=== PATIENT | female | born 1990 | race Caucasian/White ===

== ENCOUNTER 2016-08-05 12:27 | Inpatient (IN) | payer OTHER, MEDICAID ==
[~2016-08-05] VITALS: Ht 157.5 cm; Wt 51.2 kg
[2016-08-05] MEDS ORDERED: PREN1TAB11 PO (12:39)
[2016-08-05] MEDS ORDERED: MULTIVITAMIN -ADULT INJECTION 10 ML, THIAMINE INJection 100 MG, FOLIC ACID 1 MG in NS 1... IV ONE (12:45)
[2016-08-05 13:04] LABS: BASO % 0.3 % (0.0-1.0); EOS % 0.1 % (0.0-3.0); LARGE UNSTAINED CELL # 0.3 K/mm3 (0.0-0.4); LARGE UNSTAINED CELL % 2.3 % (0.0-4.0); LYMPH # 1.8 K/mm3 (1.5-6.5); LYMPH % 12.6 % (24.0-44.0); MEAN CORPUSCULAR HEMOGLOBIN 26.1 pg (27.0-33.0); MEAN CORPUSCULAR HGB CONC 33.9 g/dl (32.0-36.5); MEAN CORPUSCULAR VOLUME 77.1 fl (80.0-96.0); MONO # 0.6 K/mm3 (0.0-0.8); MONO % 5.2 % (0.0-5.0); NEUTROPHILS # 9.4 K/mm3 (1.8-7.7); NEUTROPHILS % 79.5 % (36.0-66.0); PLATELET COUNT, AUTOMATED 318 k/mm3 (150-450); RED CELL DISTRIBUTION WIDTH 13.9 % (11.5-14.5); WHITE BLOOD COUNT 11.8 K/mm3 (4.0-10.0)
[2016-08-05 13:15] LABS: METHADONE URINE NEGATIVE (NEGATIVE)
[2016-08-05 13:17] LABS: ALBUMIN/GLOBULIN RATIO 0.77 (1.00-1.93); ALKALINE PHOSPHATASE 70 U/L (45-117); ALT/SGPT 16 U/L (12-78); ANION GAP 12 MEQ/L (8-16); AST/SGOT 24 U/L (15-37); BILIRUBIN,TOTAL 0.9 MG/DL (0.2-1.0); BLOOD UREA NITROGEN 6 MG/DL (7-18); CALCIUM LEVEL 8.4 MG/DL (8.5-10.1); CARBON DIOXIDE LEVEL 36 MEQ/L (21-32); CHLORIDE LEVEL 84 MEQ/L (98-107); CREATININE FOR GFR 0.51 MG/DL (0.55-1.02); GLOMERULAR FILTRATION RATE > 60.0 (>60); GLUCOSE, FASTING 115 MG/DL (70-105); SODIUM LEVEL 132 MEQ/L (136-145); TOTAL PROTEIN 6.9 GM/DL (6.4-8.2)
[2016-08-05] MEDS ORDERED: POTASSIUM CHLORIDE 10% LIQ 20 MEQ/15 ML UDC PO ONE ×2 (13:45→18:00)
[2016-08-05] MEDS ORDERED: KCL 10MEQ IN 100ML SWI (KRUN) 10 MEQ in APPROPRIATE DILUENT 1 EA IV ONE ×2 (13:45)
[2016-08-05 15:46] LABS: BASO % 0.3 % (0.0-1.0); EOS % 0.3 % (0.0-3.0); LARGE UNSTAINED CELL # 0.2 K/mm3 (0.0-0.4); LARGE UNSTAINED CELL % 1.7 % (0.0-4.0); LYMPH # 1.6 K/mm3 (1.5-6.5); LYMPH % 16.4 % (24.0-44.0); MEAN CORPUSCULAR HEMOGLOBIN 25.7 pg (27.0-33.0); MEAN CORPUSCULAR HGB CONC 33.1 g/dl (32.0-36.5); MEAN CORPUSCULAR VOLUME 77.6 fl (80.0-96.0); MONO # 0.4 K/mm3 (0.0-0.8); MONO % 4.5 % (0.0-5.0); NEUTROPHILS # 6.8 K/mm3 (1.8-7.7); NEUTROPHILS % 76.8 % (36.0-66.0); PLATELET COUNT, AUTOMATED 272 k/mm3 (150-450); RED CELL DISTRIBUTION WIDTH 13.9 % (11.5-14.5); WHITE BLOOD COUNT 8.8 K/mm3 (4.0-10.0)
[2016-08-05 17:36] LABS: POTASSIUM SERUM 2.3 MEQ/L (3.5-5.1)
[2016-08-05 17:57] LABS: BILIRUBIN,DIRECT 0.2 MG/DL (0.0-0.2); FERRITIN 4 NG/ML (8-252); MAGNESIUM LEVEL 1.9 MG/DL (1.8-2.4)
[2016-08-05] MEDS ORDERED: TYLE1TAB5 PO (17:58)
[2016-08-05] MEDS ORDERED: RANITAB PO (17:58)
[2016-08-05] MEDS ORDERED: TUMS500C PO (17:58)
[2016-08-05] MEDS ORDERED: POTASSIUM CHLORIDE INJ 20 MEQ in D5W/LR 1,000 ML IV SCH (18:00)
[2016-08-05 18:04] LABS: RETIC HEMOGLOBIN CONTENT CHr 28.5 PG (24-36); RETICULOCYTE ABSOLUTE ADVIA212 137 x10(9)/L (17-77)
--- NOTE | 2016-08-05 18:07 | REP ---
OB ULTRASOUND: REASON: Anemia. COMPARISON: None. Multiple ultrasonographic images of the gravid uterus show a single living intrauterine gestation in the tc breech presentation. Doppler interrogation of the heart shows a heart rate of 123 beats per minute. The placenta is anterior and not low lying. The subjective aminotic fluid volume is within normal limits. The cervix measures 2.8 cm in length and it is closed. Evaluation of the maternal adnexal spaces showed no abnormalities. Structures visualized as unremarkable are as follows: Thalami, cavum septum pellucidum, cerebellum, cisterna magna, cerebral ventricles, urinary bladder, cord insertion, three vessel umbilical cord, stomach, four chamber heart, right and left ventricular outflow tracts, upper and lower extremities, upper lip. BPD 5.8 cm = 23 weeks 6 days HC 22.9 cm = 24 weeks 6 days AC 22.0 cm = 26 weeks 3 days FL 4.5 cm = 24 weeks 6 days Estimated weight is 825 grams which is at the 48th percentile for a 25 week 3 day gestational age. IMPRESSION: Single living intrauterine gestation as described above with an estimated gestational age of 24 weeks 6 days via composite criteria and an estimated date of delivery of 11/19/2016 by today's exam. No anomalies were detected, however I recommend a followup exam to better image the spine and kidneys. Signed by David Smith DO 08/07/2016 03:43 P
[2016-08-05 18:09] LABS: INR 0.97
[2016-08-05 19:12] LABS: ANION GAP 9 MEQ/L (8-16); BLOOD UREA NITROGEN 4 MG/DL (7-18); CALCIUM LEVEL 7.7 MG/DL (8.5-10.1); CARBON DIOXIDE LEVEL 35 MEQ/L (21-32); CHLORIDE LEVEL 93 MEQ/L (98-107); CREATININE FOR GFR 0.44 MG/DL (0.55-1.02); GLOMERULAR FILTRATION RATE > 60.0 (>60); GLUCOSE, FASTING 84 MG/DL (70-105); SODIUM LEVEL 137 MEQ/L (136-145)
[2016-08-05] MEDS ORDERED: POTASSIUM CHLORIDE 10 MEQ SR TABLET PO ONE (19:15)
[2016-08-05] MEDS ORDERED: OXAZEPAM 10 MG CAP PO PRN (19:15)
[2016-08-05 20:00] VITALS: BP 118/70
--- NOTE | 2016-08-05 20:01 | ECGEPIP ---
Stationary ECG Study [facility] Test Date: 2016-08-05 Pat Name: LUANN MCKEE Department: Room: - Gender: F Manager Of Broadcast Content: latoya : 1990 Requested By: MILENA LEAL Order Number: [id number] Reading MD: James Dominique Measurements Intervals [place] Rate: 97 P: 4 CO: 139 QRS: 39 QRSD: 101 T: -2 QT: 385 QTc: 490 Interpretive Statements SINUS RHYTHM QTc prolonged NONSPECIFIC ST & T-WAVE ABNORMALITY Comparison tracing not on file Electronically Signed On 08-05-2016 20:00:51 EDT by James Dominique
[2016-08-05] MEDS: KCL 40MEQ in NS 1000ML 1,000 ML IV SCH (20:15)
--- NOTE | 2016-08-05 21:59 | HPE ---
DATE OF ADMISSION: 08/05/2016 PRIMARY CARE PROVIDER: Dr. Cano OBSTETRICS/GYNECOLOGY: Dr. Patino CHIEF COMPLAINT: Intoxication. HISTORY OF PRESENT ILLNESS: Ms. Courtney is a 25-year-old female with past medical history of alcohol abuse who presented to the emergency department (ED) today for alcohol intoxication. Patient reportedly was at her rehabilitation facility and was sent over. Admits to drinking two 12-ounces of [place]. She has a history of alcohol use, but states her last drink was 12/2015. However, recently, states that she has a lot of stress in her life, including wanted to be from her boyfriend and subsequently drank heavily earlier today. Denies any chest pain, palpitations, fevers, chills. Reports shortness of breath since her . Also reports nausea, vomiting because of her . No hematuria, hemoptysis, hematemesis, melena, or abnormal bloody vaginal discharge. PAST MEDICAL HISTORY: Gastroesophageal reflux disease (GERD). Alcohol abuse. OBSTETRICAL HISTORY: She is G5, P3. PAST SURGICAL HISTORY: Tonsillectomy. ALLERGIES: No known drug allergies. HOME MEDICATIONS: - calcium 500 mg by mouth three times a day as needed - one tablet by mouth daily - ranitidine 75 mg by mouth before food - Tylenol FAMILY HISTORY: Unknown. She does have a sibling who is reportedly healthy. SOCIAL HISTORY: She used to smoke but unwilling to state how long, but quit since her . Used to drink heavily and last drink was today. No drug use. No recent travel. Patient is a [place]. Does not work outside of the home. No travel outside the state. Admits that she wanted to go [facility] and has plans on breaking up with boyfriend. Currently lives at home with boyfriend and one dog. REVIEW OF SYSTEMS: CONSTITUTIONAL: Denies fevers, chills, rigors, weight changes. HEENT: Denies headaches, lightheadedness, dizziness, blurry vision, difficulty with speech and swallow. CARDIOVASCULAR: Positive for shortness of breath, as mentioned above. Denies chest pain, paroxysmal nocturnal dyspnea, pillow orthopnea, lower extremity edema. PULMONARY: Denies productive cough, hemoptysis. GASTROINTESTINAL: Denies hematochezia, melena, or hematemesis. Positive for nausea, vomiting due to . Denies diarrhea, constipation. GENITOURINARY: No dysuria, frequency or hematuria. MUSCULOSKELETAL: No bone, muscle, joint pain. NEUROLOGICAL: No paralysis, paresthesia, headaches. ENDOCRINE: Negative for diabetes, or thyroid disease. LYMPHATICS: No lumps, bumps, or swelling anywhere in neck, axilla, or groin. HEMATOLOGY: No abnormal bleeding or bruising. PHYSICAL EXAMINATION: VITAL SIGNS: Blood pressure 125/72, heart rate 98, temperature 97.6, pulse oximetry 99% on room air, respiration rate 18. GENERAL: Patient is sitting in bed, comfortable, no acute distress. Thin-appearing. Boyfriend at bedside. Cooperative. HEENT: Normocephalic, atraumatic. Moist oral mucosa. Poor dentition considering age. Nasal septum midline. EYES: Extraocular movements intact. Pupils are equal and reactive to light. NECK: Supple. Trachea midline. No jugular venous distention (JVD). CHEST: Symmetric chest rise. No accessory muscle use. Breath sounds clear to auscultation bilaterally. HEART: Regular rate and rhythm. Normal S1, S2. ABDOMEN: Gravid. Bowel sounds present. EXTREMITIES: No pedal edema. Pedal pulses present bilaterally. NEUROLOGIC: No focal deficits appreciated. Cranial nerves II-XII grossly intact. PSYCHIATRIC: She was initially hesitant in answering questions when her boyfriend was in the room, but was able to share more details after he left. LABORATORY DATA: WBC 8.8, hemoglobin 8, hematocrit 24.1, platelets 272. Sodium 137, potassium initially was 2; after multiple doses of potassium given in the emergency department (ED), increased to 2.3; chloride 93, carbon dioxide 35, BUN 4, creatinine 0.44, glucose 85, calcium 7.7. Toxicology screen negative except for level at 0.27. Coag studies negative. EKG shows sinus rhythm with ventricular rate of [address]-T wave abnormalities. Obstetrical ultrasound showed single living intrauterine gestation. Gestation age is estimated to be 24 weeks 6 days and estimated day of delivery is 11/19/2016. No anomalies detected. It does recommend followup examination to better image the spine and kidney. IMPRESSION AND PLAN: Ms. Courtney is a 25-year-old female who is a G5, P3, presented for alcohol intoxication, found to be anemic and hypokalemic. 1. Hypokalemia. The patient will be admitted and monitored closely. Has already received potassium 40 mEq times two and 10 intravenously (IV). We will give her a one-time dose of potassium supplementation 40 mEq. Will also add the potassium supplementation to her IV fluid. Repeat laboratory work tonight. 2. Anemia. Likely physiologic secondary to her . Consent is in place. We will type and screen, but no need for transfusion at this time. Case was discussed between Dr. Ceron and Dr. Carlton, obstetrics and gynecology. 3. Hypotension. Likely secondary to dehydration. Patient will be placed on IV fluid hydration with potassium supplementation. 4. Alcohol intoxication. Patient will be placed on Serax as needed after discussion with Dr. Carlton. 5. Protein calorie malnutrition. Body mass index (BMI) 19. Recommend increased oral intake as she is . 6. Deep venous thrombosis (DVT) prophylaxis. Sequential compression devices (SCDs) and thromboembolitic deterrents (TEDs). 7. Due to her multiple social issues, along with concern for potential abuse at home, we will consult Patient and Family Services (PFS) for further assistance. DISPOSITION: Due to patient's condition, we expect her stay to be greater than 2 midnights. My preceptor for this patient encounter was Dr. Mario Ceron. The preceptor was physically present in the building during the encounter and was fully available as needed. All aspects of the patient interview, examination, medical decision making process, and medical care plan development were reviewed and approved by the preceptor. The preceptor is aware and concurs with the plan as stated in the body of this note and will attest to such by his/her co-signature. KEITH
[2016-08-05 23:36] VITALS: BP 106/55
[2016-08-06] VITALS (9 sets, daily range): BP systolic 87–106; BP diastolic 50–57
[2016-08-06 00:28] LABS: MAGNESIUM LEVEL 2.1 MG/DL (1.8-2.4); POTASSIUM SERUM 2.1 MEQ/L (3.5-5.1)
[2016-08-06] MEDS: POTASSIUM CHLORIDE 10 MEQ SR TABLET PO SCH ×2 (01:52→02:48)
[2016-08-06 05:55] LABS: MEAN CORPUSCULAR HEMOGLOBIN 26.5 pg (27.0-33.0); MEAN CORPUSCULAR HGB CONC 33.5 g/dl (32.0-36.5); RED CELL DISTRIBUTION WIDTH 14.3 % (11.5-14.5); WHITE BLOOD COUNT 7.3 K/mm3 (4.0-10.0)
[2016-08-06] MEDS: KCL 40MEQ in NS 1000ML 1,000 ML IV SCH ×2 (05:55→15:07)
[2016-08-06 06:22] LABS: ANION GAP 7 MEQ/L (8-16); BLOOD UREA NITROGEN 5 MG/DL (7-18); CALCIUM LEVEL 7.6 MG/DL (8.5-10.1); CARBON DIOXIDE LEVEL 32 MEQ/L (21-32); CHLORIDE LEVEL 97 MEQ/L (98-107); CREATININE FOR GFR 0.43 MG/DL (0.55-1.02); GLOMERULAR FILTRATION RATE > 60.0 (>60); GLUCOSE, FASTING 92 MG/DL (70-105); POTASSIUM SERUM 2.9 MEQ/L (3.5-5.1); SODIUM LEVEL 136 MEQ/L (136-145)
[2016-08-06] MEDS ORDERED: POTASSIUM CHLORIDE 10 MEQ SR TABLET PO ONE (06:45)
[2016-08-06] MEDS: THIAMINE 100 MG TAB PO SCH (08:09)
[2016-08-06] MEDS: FOLIC ACID 1 MG TAB PO SCH (08:09)
[2016-08-06] MEDS: MULTIVITAMINS/MINERALS THERAP 1 TAB PO SCH (08:10)
[2016-08-06] MEDS: PRENATAL VITAMIN TAB PO SCH (08:10)
[2016-08-06] MEDS: ACETAMINOPHEN 325 MG TAB PO PRN ×2 (09:04→17:37)
[2016-08-06] MEDS ORDERED: DOCUSATE SODIUM 100 MG CAP PO PRN (11:00)
[2016-08-06 12:45] LABS: ANION GAP 6 MEQ/L (8-16); BLOOD UREA NITROGEN 6 MG/DL (7-18); CALCIUM LEVEL 7.9 MG/DL (8.5-10.1); CARBON DIOXIDE LEVEL 29 MEQ/L (21-32); CHLORIDE LEVEL 101 MEQ/L (98-107); CREATININE FOR GFR 0.49 MG/DL (0.55-1.02); GLOMERULAR FILTRATION RATE > 60.0 (>60); GLUCOSE, FASTING 102 MG/DL (70-105); POTASSIUM SERUM 3.3 MEQ/L (3.5-5.1); SODIUM LEVEL 136 MEQ/L (136-145)
--- NOTE | 2016-08-06 18:26 | IPN ---
DATE: 08/06/2016 TIME OF VISIT: 10:00 a.m. SUBJECTIVE: This is a 25-year-old female who is seen in the PCU . This morning, was complaining of headache and was requesting for Tylenol. Complains of constipation but unable to recall the last time she had a bowel movement. She states that she has had a history of hypokalemia going back in the last 2-3 years, which she attributes to her eating disorder. Continues to deny having any other alcohol recently aside from her excessive drinking yesterday. States that she is trying to do her best to keep her baby healthy by not indulging in alcohol. She does not want her current partner to know anything about why she is in the hospital or her medical condition, though states that she needs him to be around in case she gets discharged and needs a ride back home. History from her is somewhat confusing as she expressed desire to go to a retirement but somehow still wants her boyfriend to help drive her home after her discharge. Denies any chest pain, shortness of breath, palpitations, fevers, chills or night sweats. She states that during her , she has probably two episodes of emesis a day, mostly vomits up whatever she eats. OBJECTIVE: VITAL SIGNS: Blood pressure 106/52, heart rate 110, respiratory rate 20, pulse oximetry 97% on room air. Temperature 98.4. INTAKE AND OUTPUT: Last 24 hours: 1740 and 1155. One emesis documented. GENERAL: Patient is sleeping, comfortable in her bed. Alert, awake, oriented times three. HEENT: Normocephalic, atraumatic. Moist oral mucosa, poor dentition. CHEST: Symmetric chest rise, no accessory muscle use. Breath sounds were clear to auscultation bilaterally. HEART: Regular rate and rhythm with normal S1, S2. ABDOMEN: Gravid. Bowel sounds present. EXTREMITIES: No pedal edema. Pedal pulses present bilaterally. PSYCHIATRIC: She is cooperative; however, at times is very vague with her answers and would be defensive and easily irritated. LABORATORY DATA: WBC 7.3, hemoglobin 7.6, hematocrit 22, platelets 246. Sodium 136, potassium 2.9, chloride 97, carbon dioxide 32, BUN 5, creatinine 0.53, glucose 92, calcium 7.6. IMPRESSION AND PLAN: Ms. Courtney is a 25-year-old female who is 5, para 4, presented for alcohol intoxication, found to be anemic and hypokalemic. 1. Hypokalemia. Etiology unclear. Upon further questioning, reports that she has had at least 2 years of a history of hypokalemia, which she attributes to mostly secondary to her eating disorder. We have sent for urinalysis. Check urine potassium and urine creatinine for evaluation for possible renal tubular acidosis (RTA). Potassium has been repleted and have ordered repeat lab work performed later today. Will continue IV hydration with potassium supplementation through IV. 2. Anemia. There is mild decrease in her hemoglobin but not significantly changed. No need for transfusion at this time. Will followup with OB-AUTOMOTIVE SERVICE CONSULTANT recommendation. 3. Hypotension secondary to dehydration. Will continue fluid hydration. 4. Alcohol intoxication. The patient was placed on Clinical [place] Withdrawal Assessment (CIWA) protocol and on Serax as needed. Lengthy time discussed with patient regarding alcohol abuse in and alcohol syndrome. The patient remains adamant that she only had one episode of relapse yesterday during her . 5. Severe protein-calorie malnutrition. Her body mass index (BMI) is only 19 despite her being . Recommend increased oral intake. 6. Social issue. It appears that the patient has extensive social issues going on in her life, which she is refusing to go into detail at this time. I have consulted patient and family services (PFS) for assistance. In the meantime, while her boyfriend is in the room, she requests that we do not share any information regarding her medical condition, diagnosis, plan and treatment while he is present. 7. Deep vein thrombosis (DVT) prophylaxis. Sequential compression devices (SCDs) , thromboembolism deterrents (TEDs). My preceptor for this patient encounter was Dr. Lainez. The preceptor was physically present in the building during the encounter and was fully available. As needed, all aspects of the patient interview, examination, medical decision making process, and medical care plan development were reviewed and approved by the preceptor. The preceptor is aware and concurs with the plan as stated in the body of this note and will attest to such by his/her cosignature. KEITH
[2016-08-06] MEDS ORDERED: SODIUM CHLORIDE 0.9% 1000 ML IV ONE (20:30)
[2016-08-06] MEDS ORDERED: NS 1,000 ML IV SCH (20:30)
[2016-08-06 20:56] LABS: MEAN CORPUSCULAR HEMOGLOBIN 25.7 pg (27.0-33.0); MEAN CORPUSCULAR VOLUME 80.3 fl (80.0-96.0); RED CELL DISTRIBUTION WIDTH 14.5 % (11.5-14.5); WHITE BLOOD COUNT 8.6 K/mm3 (4.0-10.0)
[2016-08-06 21:24] LABS: ANION GAP 5 MEQ/L (8-16); BLOOD UREA NITROGEN 7 MG/DL (7-18); CALCIUM LEVEL 8.3 MG/DL (8.5-10.1); CARBON DIOXIDE LEVEL 33 MEQ/L (21-32); CHLORIDE LEVEL 101 MEQ/L (98-107); CREATININE FOR GFR 0.41 MG/DL (0.55-1.02); GLOMERULAR FILTRATION RATE > 60.0 (>60); GLUCOSE, FASTING 65 MG/DL (70-105); MAGNESIUM LEVEL 1.9 MG/DL (1.8-2.4); POTASSIUM SERUM 3.5 MEQ/L (3.5-5.1); SODIUM LEVEL 139 MEQ/L (136-145)
[2016-08-07] VITALS: BP 96/50
[2016-08-07] MEDS: KCL 40MEQ in NS 1000ML 1,000 ML IV SCH (01:14)
[2016-08-07 04:00] VITALS: BP 88/53
[2016-08-07] MEDS ORDERED: SODIUM CHLORIDE 0.9% 1000 ML IV ONE ×2 (04:30→07:15)
[2016-08-07 06:11] LABS: MEAN CORPUSCULAR HGB CONC 32.1 g/dl (32.0-36.5); RED CELL DISTRIBUTION WIDTH 14.6 % (11.5-14.5); WHITE BLOOD COUNT 5.6 K/mm3 (4.0-10.0)
[2016-08-07 06:23] LABS: ANION GAP 4 MEQ/L (8-16); BLOOD UREA NITROGEN 6 MG/DL (7-18); CALCIUM LEVEL 7.6 MG/DL (8.5-10.1); CARBON DIOXIDE LEVEL 27 MEQ/L (21-32); CHLORIDE LEVEL 109 MEQ/L (98-107); CREATININE FOR GFR 0.33 MG/DL (0.55-1.02); GLOMERULAR FILTRATION RATE > 60.0 (>60); GLUCOSE, FASTING 88 MG/DL (70-105); SODIUM LEVEL 140 MEQ/L (136-145)
[2016-08-07 08:00] VITALS: BP 109/56
[2016-08-07] MEDS ORDERED: FERROUS SULFATE 325MG TAB PO SCH (09:00)
[2016-08-07] MEDS: MULTIVITAMINS/MINERALS THERAP 1 TAB PO SCH (09:27)
[2016-08-07] MEDS: PRENATAL VITAMIN TAB PO SCH (09:27)
[2016-08-07] MEDS: THIAMINE 100 MG TAB PO SCH (09:27)
[2016-08-07] MEDS: FOLIC ACID 1 MG TAB PO SCH (09:27)
[2016-08-07] MEDS ORDERED: FOLI1TAB2 PO (10:03)
[2016-08-07] MEDS ORDERED: FERR325T PO (10:03)
[2016-08-07] MEDS ORDERED: COLA100C3 PO (10:03)
[2016-08-07 10:18] LABS: BILIRUBIN,DIRECT 0.1 MG/DL (0.0-0.2); BILIRUBIN,TOTAL 0.4 MG/DL (0.2-1.0)
--- NOTE | 2016-08-08 14:58 | DSES ---
DATE OF ADMISSION: 08/05/2016 DATE OF DISCHARGE: 08/07/2016 PRIMARY CARE PROVIDER: Dr. Cano. CONSULTS: Dr. Carlton, OB-ALARM TECHNICIAN. PROCEDURES: None. COMPLICATIONS: None. RELEVANT TESTING: Admission potassium level 2. Lowest hemoglobin/hematocrit 6.6 and 20.7. Alcohol level 0.269. OB ultrasound reported a single living intrauterine gestation with gestational age 24 weeks 6 days. No anomaly detected. Recommend followup to better image spine and kidneys. DISCHARGE DIAGNOSES: 1. Alcohol intoxication. 2. Hypokalemia. 3. Anemia in . 4. Hypotension. 5. Constipation. 6. Protein-calorie malnutrition, body mass index (BMI) 19. 7. Tachycardia. SECONDARY ADMITTING DIAGNOSES: Gastroesophageal reflux disease (GERD). Eating disorder HISTORY OF PRESENT ILLNESS: Ms. Courtney is a 25-year-old female with past medical history as mentioned above who was sent in from rehabilitation facility for alcohol intoxication. Her alcohol level on admission was 0.27. The patient herself adamantly denied any alcohol ingestion during her up until the day of admission. For complete history and physical, please see dictation on admission. Because of her abnormal electrolyte and intoxicated state, she was admitted for further treatment. For her hypokalemia, potassium was repleted. For anemia, she remained asymptomatic. After discussion with OB-ALARM TECHNICIAN, it is believed that her anemia is physiologic secondary to her and be treated conservatively with by mouth iron supplementation. For protein-calorie malnutrition, the patient was recommended to increase by mouth intake. Folic acid was added to her vitamins. Her hypotension was believed to be secondary to physiologic response to . She received IV fluid hydration which improved at discharge. For alcohol abuse, she was placed on withdrawal protocol. However, she did not require any of her as needed medication for alcohol withdrawal. PHYSICAL EXAMINATION AT TIME OF DISCHARGE: VITAL SIGNS: Blood pressure 109/56, temperature 98.6, respiration rate 20, pulse oximetry 98% on room air. Intake and output the last 24 hours: 2920 and 1400. GENERAL: The patient is sitting in bed, comfortable, no acute distress. She is abrupt, easily irritated. Thin appearing. HEENT: Normocephalic, atraumatic. Refuses to open her mouth for examination. NECK: Supple. Trachea is midline. CHEST: Symmetric chest rise, no accessory muscle use. Breath sounds were clear to auscultation bilaterally. HEART: Regular rate and rhythm, S1, S2 present. ABDOMEN: Soft, nontender, nondistended. Bowel sounds present. No guarding, no rebound. Gravid. EXTREMITIES: No pedal edema. Pedal pulses present bilaterally. LABORATORY DATA: WBC 5.6, hemoglobin 6.6, hematocrit 20.7, platelets 229. Sodium 140, potassium 4, chloride 109, carbon dioxide 27, BUN 6, creatinine 0.33 , glucose 88, calcium 7.6, total bilirubin 0.4, direct bilirubin 0.1, lactic dehydrogenase is normal. Random creatinine is 70.9. Random urine potassium is 31. Urinalysis show 2+ protein, 4 red blood cells (RBCs), 1 bacteria. DISCHARGE CONDITION: Stable. ACTIVITY: As tolerated. DIET: Regular. DISCHARGE MEDICATIONS: New medications: - Colace 100 mg by mouth twice a day - ferrous sulfate 325 mg by mouth three times a day - folic acid 1 mg by mouth daily Continue the following home medications: - Tums three times a day as needed for heartburn - vitamins - ranitidine one capsule by mouth before food - Tylenol nightly as needed Followup Dr. Cano in one week. Keep scheduled appointment later today with Dr. Bravo. Please have repeat CBC and BMP in one week and results to be sent to her primary care physician (PCP) and OB-ALARM TECHNICIAN. INSTRUCTIONS: The patient is instructed to return to hospital if she has worsening or recurrent symptoms, abnormal bleeding, fevers or anything else concerning to patient and family. My preceptor for this patient encounter was Dr. Randolph Lainez. The preceptor was physically present in the building during the encounter and was fully available as needed. All aspects of the patient interview, examination, medical decision making process, and medical care plan development were reviewed and approved by the preceptor. The preceptor is aware and concurs with the plan as stated in the body of this note and will attest to such by his/her co-signature. cc: Dr. Rachael PARKER
== END 2016-08-07 14:00 | disposition home or self-care (01) | DRG 775 ==
LOC: EDBD 12:27 → M ED 13:21 → M ED INP 18:42 → M PCU 19:56
PROVIDERS: ADMIT Internal Medicine; ATTEND Internal Medicine
DX: O99.282 Endocrine, nutritional and metabolic diseases complicating pregnancy, second trimester (principal); O99.62 Diseases of the digestive system complicating childbirth; Z68.1 Body mass index [BMI] 19.9 or less, adult; E87.6 Hypokalemia; Z3A.24 24 weeks gestation of pregnancy; F10.129 Alcohol abuse with intoxication, unspecified; K59.00 Constipation, unspecified; I95.9 Hypotension, unspecified; R00.0 Tachycardia, unspecified; K21.9 Gastro-esophageal reflux disease without esophagitis; F50.9 Eating disorder, unspecified; O25.12 Malnutrition in pregnancy, second trimester; O99.312 Alcohol use complicating pregnancy, second trimester; O99.342 Other mental disorders complicating pregnancy, second trimester

== ENCOUNTER 2016-09-21 09:11 | Emergency (ER) | payer MEDICAID, OTHER ==
[~2016-09-21] VITALS: Ht 157.5 cm; Wt 45.4 kg
[~2016-09-21 09:11] MED LIST: COLA100C3 PO; FERR325T PO; FOLI1TAB2 PO; PREN1TAB11 PO; RANITAB PO; TUMS500C PO; TYLE1TAB5 PO
[2016-09-21] MEDS ORDERED: NS 1,000 ML IV SCH (10:00)
[2016-09-21 10:07] LABS: CREATININE FOR GFR 1.19 MG/DL (0.55-1.02); GLOMERULAR FILTRATION RATE 58.4 (>60)
[2016-09-21] MEDS ORDERED: NS 1,000 ML IV ONE (10:15)
[2016-09-21 10:25] LABS: POTASSIUM SERUM 1.6 MEQ/L (3.5-5.1)
[2016-09-21 10:30] LABS: MEAN CORPUSCULAR HGB CONC 36.3 g/dl (32.0-36.5); MEAN CORPUSCULAR VOLUME 79.7 fl (80.0-96.0); RED CELL DISTRIBUTION WIDTH 15.3 % (11.5-14.5); WHITE BLOOD COUNT 6.7 K/mm3 (4.0-10.0)
[2016-09-21] MEDS ORDERED: POTASSIUM CHLORIDE 10 MEQ SR TABLET PO ONE (10:30)
[2016-09-21] MEDS ORDERED: KCL 10MEQ IN 100ML SWI (KRUN) 10 MEQ in APPROPRIATE DILUENT 1 EA IV ONE ×2 (10:30)
[2016-09-21 10:32] LABS: MAGNESIUM LEVEL 2.4 MG/DL (1.8-2.4)
[2016-09-21] MEDS ORDERED: ISOVUE-370 76% 100ML VIAL (Q9967) As Ordered ONE (10:39)
[2016-09-21 10:51] LABS: ANISOCYTOSIS 1+; HYPERSEGMENTED POLYS 2+
--- NOTE | 2016-09-21 11:31 | REP ---
CT PULMONARY ANGIOGRAM: With IV contrast. HISTORY: Shortness of breath and chest pain. Question pulmonary embolus. COMPARISON STUDIES: No comparison study. Contrast dose: 75 mL of Isovue [address] TECHNIQUE: Helical scanning is acquired and overlapping 1.5 mm and contiguous 3 mm axial images are reformatted. In addition, a 3D work station is deployed to generate thick slab maximum intensity projection images in sagittal and coronal imaging projections. CT PULMONARY ANGIOGRAPHIC FINDINGS: There is good opacification of the pulmonary arterial tree. There is no CT evidence of pulmonary embolism. Maximum intensity projection images show no filling defect or vessel cutoff in the pulmonary arterial tree. The thoracic aorta enhances homogeneously and is normal in course and caliber. There is a large sliding type hiatal hernia noted behind the heart. No hilar or mediastinal mass or adenopathy is observed. Visualized upper abdominal structures are unremarkable. No bony destructive lesion is seen. IMPRESSION: No CT evidence of pulmonary embolism. Fairly large hiatal hernia. Otherwise negative. Signed by Kushal Ceja MD 09/21/2016 12:59 P
[2016-09-21] MEDS ORDERED: FERR325T PO (11:54)
[2016-09-21] MEDS ORDERED: COLA100C3 PO (11:54)
[2016-09-21] MEDS ORDERED: FOLI1TAB2 PO (11:54)
[2016-09-21 13:01] VITALS: BP 110/68
[2016-09-21 13:33] LABS: METHADONE URINE NEGATIVE (NEGATIVE)
--- NOTE | 2016-09-22 08:00 | ECGEPIP ---
Stationary ECG Study [facility] - ED Test Date: 2016-09-21 Pat Name: LUANN MCKEE Department: Room: - Gender: F Winterizer: lela : 1990 Requested By: JUSTYNA Edwards Order Number: [id number] Reading MD: Anil Belcher Measurements Intervals [place] Rate: 99 P: 16 NE: 134 QRS: 69 QRSD: 98 T: 52 QT: 405 QTc: 521 Interpretive Statements SINUS RHYTHM PROLONGED QTc, INCREASED TO PRIOR TRACING Electronically Signed On 09-22-2016 8:00:03 EDT by Anil Belcher
== END 2016-09-21 13:12 | disposition short-term general hospital (02) ==
LOC: EDBD 09:11 → M ED 09:35
DX: O26.53 Maternal hypotension syndrome, third trimester (principal); O99.119 Other diseases of the blood and blood-forming organs and certain disorders involving the immune mechanism complicating pregnancy, unspecified trimester; O99.283 Endocrine, nutritional and metabolic diseases complicating pregnancy, third trimester; E87.6 Hypokalemia; R55 Syncope and collapse; K44.9 Diaphragmatic hernia without obstruction or gangrene; Z79.899 Other long term (current) drug therapy; Z3A.00 Weeks of gestation of pregnancy not specified; O99.613 Diseases of the digestive system complicating pregnancy, third trimester
CPT/HCPCS: 71275; 80048; 80306; 83735; 85007; 85027; 93005; 96374; 99285; Q9967

== ENCOUNTER 2016-10-03 18:41 | Outpatient (CLI) | payer OTHER ==
[~2016-10-03] VITALS: Ht 157.5 cm; Wt 47.0 kg
[2016-10-03 18:55] VITALS: BP 94/58
[2016-10-03 20:49] LABS: MEAN CORPUSCULAR HEMOGLOBIN 29.2 pg (27.0-33.0); MEAN CORPUSCULAR HGB CONC 34.5 g/dl (32.0-36.5); MEAN CORPUSCULAR VOLUME 84.7 fl (80.0-96.0); RED CELL DISTRIBUTION WIDTH 17.6 % (11.5-14.5); WHITE BLOOD COUNT 6.9 K/mm3 (4.0-10.0)
[2016-10-03] MEDS ORDERED: LR 1,000 ML IV ONE (21:00)
[2016-10-03 21:04] LABS: ALBUMIN 2.2 GM/DL (3.2-5.2); ALBUMIN/GLOBULIN RATIO 0.79 (1.00-1.93); ALKALINE PHOSPHATASE 118 U/L (45-117); ALT/SGPT 21 U/L (12-78); ANION GAP 9 MEQ/L (8-16); AST/SGOT 24 U/L (15-37); BILIRUBIN,TOTAL 0.7 MG/DL (0.2-1.0); BLOOD UREA NITROGEN 6 MG/DL (7-18); CALCIUM LEVEL 8.2 MG/DL (8.5-10.1); CARBON DIOXIDE LEVEL 24 MEQ/L (21-32); CHLORIDE LEVEL 106 MEQ/L (98-107); CREATININE FOR GFR 0.48 MG/DL (0.55-1.02); GLOMERULAR FILTRATION RATE > 60.0 (>60); GLUCOSE, FASTING 65 MG/DL (70-105); POTASSIUM SERUM 3.2 MEQ/L (3.5-5.1); SODIUM LEVEL 139 MEQ/L (136-145)
[2016-10-03 22:52] VITALS: BP 88/53
== END 2016-10-03 22:50 | disposition home or self-care (01) ==
LOC: M LDO 18:41
PROVIDERS: ATTEND Obstetrics & Gynecology
DX: O47.03 False labor before 37 completed weeks of gestation, third trimester (principal); O26.853 Spotting complicating pregnancy, third trimester; N89.9 Noninflammatory disorder of vagina, unspecified; F50.00 Anorexia nervosa, unspecified; F10.20 Alcohol dependence, uncomplicated; D64.9 Anemia, unspecified; K21.9 Gastro-esophageal reflux disease without esophagitis; Z3A.35 35 weeks gestation of pregnancy; O99.013 Anemia complicating pregnancy, third trimester; O99.343 Other mental disorders complicating pregnancy, third trimester; O99.613 Diseases of the digestive system complicating pregnancy, third trimester; O26.893 Other specified pregnancy related conditions, third trimester
CPT/HCPCS: 59025; 80053; 80306; 81001; 85027; 87081; G0480

== ENCOUNTER → 2016-10-07 | Outpatient (REF) | payer OTHER ==
[~2016-10-07] MED LIST changes: +K-TA10TA2 PO; +MAGN500C PO; +MULTTAB20 PO; +SENN8.6T28 PO
== END ==
LOC: M LAB REF 17:18
PROVIDERS: ATTEND Advanced Practice Midwife
DX: Z34.83 Encounter for supervision of other normal pregnancy, third trimester (principal)

== ENCOUNTER 2016-10-13 17:36 | Outpatient (CLI) | payer OTHER ==
[~2016-10-13 17:36] MED LIST changes: -COLA100C3 PO; +COLA100C5 PO; +FERR1TAB8 PO; -FERR325T PO; -FOLI1TAB2 PO; +FOLI1TAB4 PO; -K-TA10TA2 PO; -MAGN500C PO; -MULTTAB20 PO; -SENN8.6T28 PO
[2016-10-13] MEDS ORDERED: K-TA10TA2 PO (19:33)
[2016-10-13] MEDS ORDERED: SENN8.6T28 PO (19:33)
[2016-10-13] MEDS ORDERED: MAGN500C PO (19:33)
[2016-10-13] MEDS ORDERED: MULTTAB20 PO (19:33)
== END 2016-10-13 19:10 | disposition home or self-care (01) ==
LOC: M LDO 17:36
PROVIDERS: ATTEND Obstetrics & Gynecology
DX: O09.893 Supervision of other high risk pregnancies, third trimester (principal); F52.0 Hypoactive sexual desire disorder; Z3A.35 35 weeks gestation of pregnancy

== ENCOUNTER → 2016-10-13 | Outpatient (REF) | payer OTHER ==
[2016-10-13 18:47] LABS: MEAN CORPUSCULAR HEMOGLOBIN 29.4 pg (27.0-33.0); MEAN CORPUSCULAR VOLUME 86.6 fl (80.0-96.0); RED CELL DISTRIBUTION WIDTH 16.5 % (11.5-14.5); WHITE BLOOD COUNT 5.2 K/mm3 (4.0-10.0)
[2016-10-13 19:07] LABS: ALBUMIN 2.7 GM/DL (3.2-5.2); ALBUMIN/GLOBULIN RATIO 0.77 (1.00-1.93); ALKALINE PHOSPHATASE 161 U/L (45-117); ALT/SGPT 14 U/L (12-78); ANION GAP 12 MEQ/L (8-16); AST/SGOT 24 U/L (15-37); BILIRUBIN,TOTAL 1.3 MG/DL (0.2-1.0); BLOOD UREA NITROGEN 10 MG/DL (7-18); CALCIUM LEVEL 8.7 MG/DL (8.5-10.1); CARBON DIOXIDE LEVEL 28 MEQ/L (21-32); CHLORIDE LEVEL 97 MEQ/L (98-107); GLOMERULAR FILTRATION RATE > 60.0 (>60); GLUCOSE, FASTING 57 MG/DL (70-105); POTASSIUM SERUM 3.8 MEQ/L (3.5-5.1); SODIUM LEVEL 137 MEQ/L (136-145); TOTAL PROTEIN 6.2 GM/DL (6.4-8.2)
== END ==
LOC: M LAB REF 17:16
PROVIDERS: ATTEND Advanced Practice Midwife
DX: O09.893 Supervision of other high risk pregnancies, third trimester (principal); F52.0 Hypoactive sexual desire disorder; Z3A.35 35 weeks gestation of pregnancy

== ENCOUNTER 2016-10-19 09:00 | Inpatient (IN) | payer OTHER ==
[~2016-10-19] VITALS: Ht 157.5 cm; Wt 42.0 kg
[2016-10-19] VITALS (21 sets, daily range): BP systolic 84–146; BP diastolic 45–87
[~2016-10-19 09:00] MED LIST changes: +K-TA10TA2 PO; +MAGN500C PO; +MULTTAB20 PO; +SENN8.6T28 PO
[2016-10-19] MEDS ORDERED: LR 1,000 ML IV SCH (09:41)
[2016-10-19] MEDS ORDERED: LACTATED RINGER'S 1000 ML IV STA (09:41)
[2016-10-19] MEDS ORDERED: OXYTOCIN 30 UNITS IN 0.9% NaCl 500ML IV BAG (J2590) As Ordered ONE (10:12)
[2016-10-19] MEDS ORDERED: OXYTOCIN DRIP 30 UNITS in APPROPRIATE DILUENT 1 EA IV SCH ×2 (10:15→18:35)
[2016-10-19 10:46] LABS: MEAN CORPUSCULAR HEMOGLOBIN 29.6 pg (27.0-33.0); MEAN CORPUSCULAR HGB CONC 35.1 g/dl (32.0-36.5); MEAN CORPUSCULAR VOLUME 84.3 fl (80.0-96.0); RED CELL DISTRIBUTION WIDTH 15.8 % (11.5-14.5); WHITE BLOOD COUNT 4.4 K/mm3 (4.0-10.0)
[2016-10-19 11:03] LABS: ALBUMIN 2.5 GM/DL (3.2-5.2); ALBUMIN/GLOBULIN RATIO 0.78 (1.00-1.93); ALKALINE PHOSPHATASE 149 U/L (45-117); ALT/SGPT 13 U/L (12-78); ANION GAP 6 MEQ/L (8-16); AST/SGOT 25 U/L (15-37); BILIRUBIN,TOTAL 0.6 MG/DL (0.2-1.0); BLOOD UREA NITROGEN 22 MG/DL (7-18); CALCIUM LEVEL 8.6 MG/DL (8.5-10.1); CARBON DIOXIDE LEVEL 39 MEQ/L (21-32); CHLORIDE LEVEL 90 MEQ/L (98-107); CREATININE FOR GFR 1.38 MG/DL (0.55-1.02); GLOMERULAR FILTRATION RATE 49.2 (>60); GLUCOSE, FASTING 70 MG/DL (70-105); POTASSIUM SERUM 3.7 MEQ/L (3.5-5.1); SODIUM LEVEL 135 MEQ/L (136-145); TOTAL PROTEIN 5.7 GM/DL (6.4-8.2); URIC ACID 11.1 MG/DL (2.6-6.0)
[2016-10-19] MEDS ORDERED: PANT40TA2 PO (14:25)
[2016-10-19] MEDS ORDERED: FENTANYL 2MCG/ML ROPIVACAINE 0.2% IN 0.9% NACL 200ML IVBAG As Ordered ONE (16:35)
[2016-10-19 18:44] LABS: CORD GAS ABE A 8.1; CORD GAS O2 SAT A 52.9 %; CORD GAS PCO2 A 62.4 mmHg; CORD GAS PH A 7.379 UNITS; CORD GAS PO2 A 23.1 mmHg; CORD GAS SBC A 30.6 MEQ/L; CORD GAS TCO2 A 37.9 MEQ/L
[2016-10-19] MEDS ORDERED: DOCUSATE SODIUM 100 MG CAP PO PRN (18:45)
[2016-10-19] MEDS ORDERED: IBUPROFEN 800 MG TAB PO PRN (18:45)
[2016-10-19] MEDS ORDERED: RHOGAM 300 MCG (1500 IU) INJ (J2790) IM SCH (18:45)
[2016-10-19] MEDS ORDERED: DIBUCAINE 1% OINTMENT 30GM TOP PRN (18:45)
[2016-10-19] MEDS ORDERED: METHYLERGONOVINE MALEATE 0.2 MG TAB PO PRN (18:45)
[2016-10-19] MEDS ORDERED: MEASLES,MUMPS,RUBELLA VACCINE INJ (MMR-II) (90707) SC SCH (18:45)
[2016-10-19] MEDS ORDERED: ACETAMINOPHEN 500 MG TAB PO PRN (18:45)
[2016-10-19 18:47] LABS: CORD GAS ABE V 7.8; CORD GAS HCO3 V 33.4 MEQ/L; CORD GAS O2 SAT V 77.3 %; CORD GAS PCO2 V 49.2 mmHg; CORD GAS PH V 7.45 UNITS; CORD GAS PO2 V 31.9 mmHg; CORD GAS TCO2 V 34.9 MEQ/L
[2016-10-19] MEDS ORDERED: METHYLERGONOVINE MALEATE 0.2 MG/ML VIAL (J2210) IM STA (19:58)
--- NOTE | 2016-10-19 21:04 | HPE ---
DATE OF ADMISSION: 10/20/2015 Kirstin is a 25-year-old female 5, para 0-1-3 with estimated date of delivery (EDC) of 11/13/2016, estimated gestational age (EGA) 36 weeks gestation. The patient has an extensive history of bulimia with poor nutrition. Her was also complicated by intrauterine growth restriction (IUGR) and oligohydramnios. After extensive counseling with the patient in consult from the center it was felt that it would be in the best issues for this patient to proceed with an induction. She is to be admitted after delivery to an inpatient center for treatment of her bulemia. No bleeding. No leakage of fluid. Her record reviewed. She is a late transfer to office, complicated by her bulimia, history of alcoholism and multiple admissions to the hospital and the center for syncopal episode and abnormal electrolytes. LABS: Blood type O negative, rubella immune, hepatitis negative, HIV negative, GC chlamydia negative, 1-hour sugar testing refused, GBS is negative. PAST MEDICAL HISTORY: Significant for bulimia, anemia, esophageal reflux, constipation, alcoholism. PAST SURGICAL HISTORY: Tonsillectomy. SOCIAL HISTORY: Lives currently at assisted living at the [facility] due to her history of alcoholism. She denies any other drugs. MEDICATIONS: - vitamin - magnesium tablets - omeprazole sodium PHYSICAL EXAMINATION: Poorly nourished female abdomen. Soft, nontender, nondistended. Extremities: No clubbing, cyanosis or edema. Vaginal examination: 2 cm, 70%, fetus at -3 station, vertex position. Tracing reviewed. Category one tracing. Irregular contraction. ASSESSMENT: 1. Intrauterine at 36 weeks gestation. 2. IUGR. 3. Oligohydramnios. 4. History of anorexia and bulimia with really poor nutritional status. Unable to get her bulimia under control. 5. Steroid complete. 6. Recommended by the center for induction. PLAN: Admit to labor and delivery. Induction process discussed with the patient. Decision made to proceed with Pitocin induction. Pain management also discussed. The patient opted for an epidural. Will continue to monitor. Anticipate delivery. [facility]
[2016-10-20 06:07] VITALS: BP 97/53
[2016-10-20 06:48] LABS: BASO % 0.5 % (0.0-1.0); EOS % 0.2 % (0.0-3.0); LARGE UNSTAINED CELL # 0.1 K/mm3 (0.0-0.4); LARGE UNSTAINED CELL % 1.4 % (0.0-4.0); LYMPH % 24.7 % (24.0-44.0); MEAN CORPUSCULAR HGB CONC 35.8 g/dl (32.0-36.5); MONO # 0.4 K/mm3 (0.0-0.8); MONO % 4.8 % (0.0-5.0); NEUTROPHILS # 5.4 K/mm3 (1.8-7.7); NEUTROPHILS % 68.4 % (36.0-66.0); PLATELET COUNT, AUTOMATED 221 k/mm3 (150-450); RED CELL DISTRIBUTION WIDTH 15.1 % (11.5-14.5); WHITE BLOOD COUNT 7.9 K/mm3 (4.0-10.0)
[2016-10-20] MEDS: PRENATAL VITAMINS CHEWABLE TABLET PO SCH (09:00)
--- NOTE | 2016-10-20 09:08 | DN ---
DATE OF DELIVERY: 10/19/2016 Kirstin is a 25-year-old female, 5, para 3-0-1-3, who is admitted at 36 weeks for an induction. She progressed to fully dilated after Pitocin induction with an epidural on board. She then pushed and delivered a live female infant in right occiput anterior position over an intact perineum. 9/9. weight 4 pounds 12 ounces. Placenta delivered spontaneously intact. Three-vessel cord. Perineum, vagina, cervix inspected. No laceration noted. Estimated blood loss 300 mL. Both mother and baby in stable condition.
[2016-10-20 18:02] VITALS: BP 84/60
[2016-10-20 20:00] VITALS: BP 125/55
[2016-10-21 05:51] VITALS: BP 93/50
[2016-10-21] MEDS ORDERED: IBUP-1114 PO (09:42)
[2016-10-21] MEDS ORDERED: ACET50TA PO (09:42)
[2016-10-21] MEDS ORDERED: COLA100C5 PO (09:43)
[2016-10-21] MEDS: PRENATAL VITAMINS CHEWABLE TABLET PO SCH (10:15)
== END 2016-10-21 18:30 | disposition home or self-care (01) | DRG 775 ==
LOC: M LDI 09:00 → M OBS 21:11
PROVIDERS: ADMIT Obstetrics & Gynecology; ATTEND Obstetrics & Gynecology
PROC: 10E0XZZ Delivery of Products of Conception, External Approach (ICD-10-PCS; principal; 2016-10-19)
PROC: 3E033VJ Introduction of Other Hormone into Peripheral Vein, Percutaneous Approach (ICD-10-PCS; 2016-10-19)
DX: O41.03X0 Oligohydramnios, third trimester, not applicable or unspecified (principal); F50.2 Bulimia nervosa; F50.02 Anorexia nervosa, binge eating/purging type; Z37.0 Single live birth; Z3A.36 36 weeks gestation of pregnancy; O99.344 Other mental disorders complicating childbirth; O36.5930 Maternal care for other known or suspected poor fetal growth, third trimester, not applicable or unspecified; F10.20 Alcohol dependence, uncomplicated